=== PATIENT | female | born 1990 | race Caucasian/White ===

== ENCOUNTER 2021-08-15 12:43 | Emergency (ER) | payer OTHER ==
[~2021-08-15] VITALS: Ht 170.2 cm; Wt 54.7 kg
[2021-08-15] MEDS ORDERED: MULTTAB20 PO (13:03)
[2021-08-15] MEDS ORDERED: UNIS25TA5 PO (13:03)
[2021-08-15] MEDS ORDERED: NS 1,000 ML IV ONE (15:30)
[2021-08-15 16:12] LABS: BASO % 0.5 % (0.0-1.0); EOS # 0.1 10^3/uL (0.0-0.5); EOS % 0.9 % (0.0-3.0); HEMATOCRIT 35.1 % (36.0-47.0); HEMOGLOBIN 12.3 g/dl (12.0-15.5); LYMPH # 1.3 10^3/uL (1.5-5.0); LYMPH % 16.5 % (24.0-44.0); MEAN CORPUSCULAR HEMOGLOBIN 28.7 pg (27.0-33.0); MONO # 0.5 10^3/uL (0.0-0.8); MONO % 6.3 % (2.0-8.0); NEUTROPHILS % 75.5 % (36.0-66.0); PLATELET COUNT, AUTOMATED 193 10^3/uL (150-450); RED BLOOD COUNT 4.28 10^6/uL (4.00-5.40); WHITE BLOOD COUNT 7.9 10^3/uL (4.0-10.0)
[2021-08-15 16:58] LABS: ALBUMIN 4.3 GM/DL (3.2-5.2); ALT/SGPT 16 U/L (12-78); BILIRUBIN,DIRECT 0.3 MG/DL (0.0-0.2); BILIRUBIN,TOTAL 0.9 MG/DL (0.2-1.0); BLOOD UREA NITROGEN 10 MG/DL (7-18); CALCIUM LEVEL 9.5 MG/DL (8.5-10.1); CARBON DIOXIDE LEVEL 26 MEQ/L (21-32); CHLORIDE LEVEL 104 MEQ/L (98-107); CREATININE FOR GFR 0.63 MG/DL (0.55-1.30); GLOMERULAR FILTRATION RATE > 60.0 (>60); GLUCOSE, FASTING 81 MG/DL (70-100); HCG, SERUM QUANTITATIVE 188259 MIU/ML; LIPASE 169 U/L (73-393); POTASSIUM SERUM 3.9 MEQ/L (3.5-5.1); SODIUM LEVEL 135 MEQ/L (136-145); TOTAL PROTEIN 7.3 GM/DL (6.4-8.2)
[2021-08-15] MEDS ORDERED: NS 500 ML IV ONE (17:55)
[2021-08-15 18:51] VITALS: BP 112/56
== END 2021-08-15 19:29 | disposition home or self-care (01) ==
LOC: M ED 12:43
DX: O21.1 Hyperemesis gravidarum with metabolic disturbance (principal); Z3A.08 8 weeks gestation of pregnancy; Z86.16 Personal history of COVID-19; Z91.018 Allergy to other foods; Z88.0 Allergy status to penicillin; Z88.2 Allergy status to sulfonamides; Z88.1 Allergy status to other antibiotic agents

== ENCOUNTER 2021-09-26 10:50 | Day surgery (SDC) | payer OTHER ==
[~2021-09-26] VITALS: Ht 170.2 cm; Wt 57.1 kg
[~2021-09-26 10:50] MED LIST: CVS1CAP2 PO; MULTTAB20 PO; UNIS25TA5 PO
[2021-09-26] MEDS ORDERED: propofoL 200 MG/20 ML VIAL As Ordered ONE (11:08)
[2021-09-26] MEDS ORDERED: LIDOCAINE 2% 100MG/5ML SDV (FOR ANES.) As Ordered ONE (11:08)
[2021-09-26] MEDS ORDERED: fentaNYL 100 MCG/2 ML INJECTION As Ordered ONE (11:09)
[2021-09-26] MEDS ORDERED: MIDAZOLAM INJ 2MG/2ML VIAL (J2250 PER 1MG) As Ordered ONE (11:09)
[2021-09-26 11:24] LABS: HEMATOCRIT 34.3 % (36.0-47.0); HEMOGLOBIN 11.9 g/dl (12.0-15.5); MEAN CORPUSCULAR HEMOGLOBIN 29.4 pg (27.0-33.0); MEAN CORPUSCULAR HGB CONC 34.7 g/dl (32.0-36.5); MEAN CORPUSCULAR VOLUME 84.7 fl (80.0-96.0); PLATELET COUNT, AUTOMATED 189 10^3/uL (150-450); RED BLOOD COUNT 4.05 10^6/uL (4.00-5.40); WHITE BLOOD COUNT 7.6 10^3/uL (4.0-10.0)
[2021-09-26] MEDS ORDERED: DOXYCYCLINE HYCLATE 100 MG in D5W MINI-BAG PLUS 100 ML IV ONE (11:30)
[2021-09-26] MEDS ORDERED: LR 1,000 ML IV ONE (11:50)
[2021-09-26] MEDS ORDERED: KETOROLAC 30 MG/ML 1ML VIAL IV PRN (12:35)
[2021-09-26] MEDS ORDERED: ACETAMINOPHEN 1000MG 100ML IV BTL (OFIRMEV) (J0131 PER 10MG) As Ordered ONE (12:57)
[2021-09-26] MEDS ORDERED: KETOROLAC 60MG 2ML VIAL As Ordered ONE (12:57)
[2021-09-26] MEDS ORDERED: METOCLOPRAMIDE INJ 10MG/2ML VIAL (J2765 PER 1) As Ordered ONE (12:57)
[2021-09-26] MEDS ORDERED: ONDANSETRON 4MG/2ML VIAL As Ordered ONE (12:57)
[2021-09-26] MEDS ORDERED: dexameTHASONE 4 MG/ML 1ML VIAL (J1100 PER 1MG) As Ordered ONE (12:57)
[2021-09-26] MEDS ORDERED: DOXYCYCLINE HYCLATE 100 MG in D5W MINI-BAG PLUS 100 ML IV SCH (13:00)
[2021-09-26] MEDS ORDERED: METHYLERGONOVINE MALEATE 0.2 MG/ML VIAL (J2210) As Ordered ONE (13:15)
[2021-09-26] MEDS ORDERED: TRANEXAMIC ACID 100 MG/ML 10ML VIAL As Ordered ONE (13:16)
[2021-09-26] MEDS ORDERED: PHENYLephrine 500MCG 5ML (100MCG/ML) SYRINGE As Ordered ONE (13:20)
[2021-09-26] MEDS ORDERED: ePHEDrine SULFATE 25 MG/5 ML(5MG/ML) SYRINGE As Ordered ONE (13:21)
[2021-09-26] MEDS ORDERED: SILVER NITRATE APPLICATOR As Ordered ONE (13:21)
[2021-09-26] MEDS ORDERED: LR 1,000 ML IV SCH (13:45)
[2021-09-26] MEDS ORDERED: fentaNYL 100 MCG/2 ML INJECTION IV PRN (13:45)
[2021-09-26] MEDS ORDERED: PERCOCET 5MG/325MG TAB PO PRN (13:45)
[2021-09-26] MEDS ORDERED: ONDANSETRON 4MG/2ML VIAL IV PRN (13:45)
[2021-09-26 14:05] VITALS: BP 104/51
[2021-09-26 14:20] VITALS: BP 104/54
[2021-09-26 14:35] VITALS: BP 102/57
[2021-09-26 14:48] VITALS: BP 110/63
[2021-09-26 15:00] VITALS: BP 110/59
[2021-09-26 17:17] VITALS: BP 117/64
== END 2021-09-26 17:20 | disposition home or self-care (01) ==
LOC: M SDC 10:50
PROVIDERS: ATTEND Obstetrics & Gynecology
DX: O02.1 Missed abortion (principal)
CPT/HCPCS: 36415; 36430; 59820; 85027; 86850; 86900; 86901; 86920; 88305; J0131; J1100; J2210; J2250; J2370; J2405; J2765; J3010; P9016

== ENCOUNTER → 2022-08-24 | Outpatient (CLI) | payer OTHER | LOC: M WHC 09:25 | PROVIDERS: ATTEND Registered Nurse | DX: O44.42 Low lying placenta NOS or without hemorrhage, second trimester (principal); Z3A.24 24 weeks gestation of pregnancy ==

== ENCOUNTER 2022-12-01 09:00 | Outpatient (CLI) | payer OTHER ==
[~2022-12-01] VITALS: Ht 170.2 cm; Wt 74.6 kg
[2022-12-01 09:19] VITALS: BP 138/91
[2022-12-01] MEDS ORDERED: GNP250TA9 PO (09:23)
[2022-12-01] MEDS ORDERED: PRENTAB9 PO (09:24)
[2022-12-01] MEDS ORDERED: [UNRECOGNIZED DRUG - OTHER] (09:24)
[2022-12-01 11:41] VITALS: BP 130/77
== END 2022-12-01 12:32 | disposition home or self-care (01) ==
LOC: M LDO 09:00
PROVIDERS: ATTEND Obstetrics & Gynecology
DX: O47.1 False labor at or after 37 completed weeks of gestation (principal); Z3A.38 38 weeks gestation of pregnancy; Z88.0 Allergy status to penicillin; Z88.2 Allergy status to sulfonamides; Z88.8 Allergy status to other drugs, medicaments and biological substances; Z91.018 Allergy to other foods
CPT/HCPCS: 59025; G0463

== ENCOUNTER 2022-12-01 16:27 | Inpatient (IN) | payer OTHER ==
[~2022-12-01] VITALS: Ht 170.2 cm; Wt 74.0 kg
[~2022-12-01 16:27] MED LIST changes: +GNP250TA9 PO; +PRENTAB9 PO; +[UNRECOGNIZED DRUG - OTHER]
[2022-12-01 16:54] VITALS: BP 131/71
[2022-12-01] MEDS ORDERED: METHYLERGONOVINE MALEATE 0.2MG/ML 1ML VIAL IM PRN (17:10)
[2022-12-01] MEDS ORDERED: OXYTOCIN DRIP 30 UNITS in IV 1 EA IV PRN ×4 (17:10)
[2022-12-01] MEDS ORDERED: TRANEXAMIC ACID INJection 1,000 MG in NS 100 ML IV PRN (17:10)
[2022-12-01] MEDS ORDERED: LIDOCAINE 1% MDV 20ML VIAL INFIL PRN (17:10)
[2022-12-01] MEDS ORDERED: LR 1,000 ML IV SCH ×2 (17:10→19:50)
[2022-12-01 17:28] LABS: HEMATOCRIT 40.9 % (36.0-47.0); MEAN CORPUSCULAR HEMOGLOBIN 29.7 pg (27.0-33.0); MEAN CORPUSCULAR HGB CONC 34.2 g/dl (32.0-36.5); MEAN CORPUSCULAR VOLUME 86.8 fl (80.0-96.0); PLATELET COUNT, AUTOMATED 206 10^3/uL (150-450); RED BLOOD COUNT 4.71 10^6/uL (4.00-5.40)
[2022-12-01 17:50] VITALS: BP 118/76
[2022-12-01 19:03] LABS: CORD GAS ABE V -1.6; CORD GAS HCO3 V 22.2 MMOL/L; CORD GAS O2 SAT V 84.5 %; CORD GAS PCO2 V 35.1 mmHg; CORD GAS PH V 7.418 UNITS; CORD GAS PO2 V 36.4 mmHg; CORD GAS SBC V 22.8 MMOL/L; CORD GAS TCO2 V 23.2 MMOL/L
[2022-12-01 19:06] LABS: CORD GAS ABE A -5.7; CORD GAS HCO3 A 22.1 MMOL/L; CORD GAS O2 SAT A 41.8 %; CORD GAS PCO2 A 52.5 mmHg; CORD GAS PH A 7.243 UNITS; CORD GAS PO2 A 27.9 mmHg; CORD GAS SBC A 18.6 MMOL/L; CORD GAS TCO2 A 23.8 MMOL/L
[2022-12-01] MEDS ORDERED: MORPHINE 10 MG/ML 1ML VIAL IV ONE (19:10)
[2022-12-01 19:25] VITALS: BP 132/74
[2022-12-01] MEDS ORDERED: DOCUSATE SODIUM 100MG CAPSULE PO PRN (19:50)
[2022-12-01] MEDS ORDERED: RHOGAM 300MCG (1500IU) INJ IM SCH (19:50)
[2022-12-01] MEDS ORDERED: METHYLERGONOVINE MALEATE 0.2 MG TAB PO PRN (19:50)
[2022-12-01] MEDS ORDERED: ONDANSETRON 4MG 2ML VIAL IV PRN (19:50)
[2022-12-01] MEDS ORDERED: DIBUCAINE 1% OINTMENT 30GM TOP PRN (19:50)
[2022-12-01] MEDS ORDERED: METOCLOPRAMIDE INJ 10MG/2ML VIAL IV PRN (19:50)
[2022-12-01] MEDS ORDERED: OXYTOCIN DRIP 30 UNITS in IV 1 EA IV SCH (19:50)
[2022-12-01] MEDS: ACETAMINOPHEN 500 MG TAB PO SCH (20:40)
[2022-12-01 21:30] VITALS: BP 140/68
[2022-12-01] MEDS: IBUPROFEN 800 MG TAB PO SCH (22:46)
[2022-12-02] MEDS: ACETAMINOPHEN 500 MG TAB PO SCH ×4 (01:50→19:50)
[2022-12-02 05:55] VITALS: BP 115/64
[2022-12-02] MEDS: IBUPROFEN 800 MG TAB PO SCH ×3 (06:06→22:32)
[2022-12-02 08:16] LABS: HEMATOCRIT 35.9 % (36.0-47.0); HEMOGLOBIN 12.1 g/dl (12.0-15.5); MEAN CORPUSCULAR HEMOGLOBIN 29.7 pg (27.0-33.0); MEAN CORPUSCULAR HGB CONC 33.7 g/dl (32.0-36.5); PLATELET COUNT, AUTOMATED 172 10^3/uL (150-450); RED BLOOD COUNT 4.08 10^6/uL (4.00-5.40); WHITE BLOOD COUNT 15.4 10^3/uL (4.0-10.0)
[2022-12-02] MEDS: PRENATAL VITAMINS CHEWABLE TABLET PO SCH (08:44)
[2022-12-02 17:45] VITALS: BP 119/64
[2022-12-03] MEDS: ACETAMINOPHEN 500 MG TAB PO SCH ×2 (01:50→08:37)
[2022-12-03 06:00] VITALS: BP 116/62
[2022-12-03] MEDS: IBUPROFEN 800 MG TAB PO SCH (06:00)
[2022-12-03] MEDS: PRENATAL VITAMINS CHEWABLE TABLET PO SCH (08:39)
[2022-12-03] MEDS ORDERED: MEASLES,MUMPS,RUBELLA VACCINE INJ (MMR-II) SC.IMMUN ONE (09:00)
== END 2022-12-03 12:55 | disposition home or self-care (01) | DRG 807 ==
LOC: M LDO 16:27 → M LDI 16:51 → M OBS 21:15
PROVIDERS: ADMIT Obstetrics & Gynecology; ATTEND Obstetrics & Gynecology
PROC: 10D17Z9 Manual Extraction of Products of Conception, Retained, Via Natural or Artificial Opening (ICD-10-PCS; principal; 2022-12-01)
PROC: 0KQM0ZZ Repair Perineum Muscle, Open Approach (ICD-10-PCS; 2022-12-01)
PROC: 10E0XZZ Delivery of Products of Conception, External Approach (ICD-10-PCS; 2022-12-01)
DX: O69.82X0 Labor and delivery complicated by other cord entanglement, without compression, not applicable or unspecified (principal); Z37.0 Single live birth; Z3A.38 38 weeks gestation of pregnancy; O70.1 Second degree perineal laceration during delivery; O73.0 Retained placenta without hemorrhage; Z91.018 Allergy to other foods; Z88.0 Allergy status to penicillin; Z88.2 Allergy status to sulfonamides; Z88.8 Allergy status to other drugs, medicaments and biological substances